=== PATIENT | male | born 1945 | race Caucasian/White ===

== ENCOUNTER 2019-07-30 11:55 | Emergency (ER) | payer MEDICARE ==
[~2019-07-30] VITALS: Ht 165.1 cm; Wt 72.6 kg
--- NOTE | 2019-07-30 12:20 | PHYS DOC ---
Past Medical History Past Medical History: Diverticulitis, Hypertension, Kidney Stone Additional Past Surgical Histo: surgery for kidney stones, back surgery Smoking: Cigarettes (The patient is a nonsmoker.) Adult General Chief Complaint Chief Complaint: ABDOMINAL PAIN HPI HPI Patient is a very pleasant 74-year-old male who presents to the emergency department for evaluation. He states about 2 hours prior to arrival, he had the sudden onset of left lower quadrant abdominal pain, with radiation towards his left groin/testicular area. He has had some nausea but no vomiting. He denies any fevers or chills. He denies any dizziness or lightheadedness, numbness or weakness. He has had both kidney stones and diverticulitis in the past, although this pain began suddenly and feels more like his diverticulitis. He does not have any flank pain per say. There are no alleviating or exacerbating factors to her symptoms although palpation of his abdomen seems to worsen his symptoms. Review of Systems Review of Systems Constitutional: Denies fever or chills [] Eyes: Denies change in visual acuity, redness, or eye pain [] HENT: Denies nasal congestion or sore throat [] Respiratory: Denies cough or shortness of breath [] Cardiovascular: The patient denies any shortness of breath, chest pain, palpita tions, or orthopnea [] GI: Denies vomiting, bloody stools or diarrhea [] : Denies dysuria or hematuria [] Musculoskeletal: Denies back pain or joint pain [] Integument: Denies rash or skin lesions [] Neurologic: Denies headache, focal weakness or sensory changes [] Endocrine: Denies polyuria or polydipsia [] All other systems were reviewed and found to be within normal limits, except as documented in this note. Current Medications Current Medications Current Medications Medications (Trade) Dose Ordered Sig/Beverley Start Time Stop Time Status Last Admin Dose Admin Ceftriaxone Sodium (Rocephin) 1 gm 1X ONCE 07/30/19 13:30 07/30/19 13:31 Hydromorphone HCl (Dilaudid) 1 mg 1X ONCE 07/30/19 13:15 07/30/19 13:16 DC 07/30/19 13:17 1 MG Ketorolac Tromethamine (Toradol 30mg Vial) 30 mg 1X ONCE 07/30/19 12:45 07/30/19 12:46 DC 07/30/19 12:34 30 MG Ondansetron HCl (Zofran) 4 mg 1X ONCE 07/30/19 12:45 07/30/19 12:46 DC 07/30/19 12:34 4 MG Sodium Chloride 1,000 ml @ 1,000 mls/hr Q1H 07/30/19 12:30 07/30/19 13:29 07/30/19 12:33 1,000 MLS/HR Tamsulosin HCl (Flomax) 0.4 mg 1X ONCE 07/30/19 13:15 07/30/19 13:16 DC 07/30/19 13:15 0.4 MG Allergies Allergies Allergies Coded Allergies Type Severity Reaction Last Updated Verified No Known Drug Allergies 07/30/19 No Physical Exam Physical Exam PHYSICAL EXAM: CONSTITUTIONAL: Well developed, well nourished HEAD: normocephalic, atraumatic EENT: PERRL, EOMI. Conjunctivae normal color, sclerae non-icteric; moist mucous membranes. NECK: Supple, non-tender; no meningismus. LUNGS: Lungs CTA, breathing even and unlabored. Normal air movement. HEART: Regular rate and rhythm, no murmur CHEST: No deformity; non-tender ABDOMEN: The abdomen is soft, there is diffuse tenderness to palpation in the left mid and lower abdomen, without rebound or guarding, the remainder of the abdomen is relatively soft and non-tender, no masses or bruits. EXTREM: Normal ROM; no deformity, no calf tenderness. Normal pulses palpable in all extremities. There is no pedal edema. SKIN: No rash; no diaphoresis NEURO: Alert; normal speech and cognition; CN's grossly intact; strength grossly intact without focal deficit. BACK: There is very mild left-sided CVA TTP. Current Patient Data Lab Values Laboratory Tests Test 07/30/19 12:06 07/30/19 12:15 Urine Collection Type Unknown Urine Color Yellow Urine Clarity Clear Urine pH 6.0 Urine Specific [place] 1.025 Urine Protein 30 mg/dL (NEG-TRACE) Urine Glucose (UA) Negative mg/dL (NEG) Urine Ketones (Stick) Negative mg/dL (NEG) Urine Blood Large (NEG) Urine Nitrite Negative (NEG) Urine Bilirubin Negative (NEG) Urine Urobilinogen Dipstick 0.2 mg/dL (0.2 mg/dL) Urine Leukocyte Esterase Moderate (NEG) Urine RBC 11-20 /HPF (0-2) Urine WBC 11-20 /HPF (0-4) Urine Squamous Epithelial Cells None /LPF Urine Bacteria 0 /HPF (0-FEW) Urine Mucus Marked /LPF White Blood Count 5.5 x10^3/uL (4.0-11.0) Red Blood Count 4.17 x10^6/uL (4.30-5.70) L Hemoglobin 13.1 g/dL (13.0-17.5) Hematocrit 38.8 % (39.0-53.0) L Mean Corpuscular Volume 93 fL (79-100) Mean Corpuscular Hemoglobin 31 pg (25-35) Mean Corpuscular Hemoglobin Concent 34 g/dL (31-37) Red Cell Distribution Width 13.6 % (11.5-14.5) Platelet Count 227 x10^3/uL (140-400) Neutrophils (%) (Auto) 61 % (31-73) Lymphocytes (%) (Auto) 23 % (24-48) L Monocytes (%) (Auto) 9 % (0-9) Eosinophils (%) (Auto) 6 % (0-3) H Basophils (%) (Auto) 1 % (0-3) Neutrophils # (Auto) 3.4 x10^3/uL (1.8-7.7) Lymphocytes # (Auto) 1.3 x10^3/uL (1.0-4.8) Monocytes # (Auto) 0.5 x10^3/uL (0.0-1.1) Eosinophils # (Auto) 0.3 x10^3/uL (0.0-0.7) Basophils # (Auto) 0.1 x10^3/uL (0.0-0.2) Sodium Level 143 mmol/L (136-145) Potassium Level 3.4 mmol/L (3.5-5.1) L Chloride Level 108 mmol/L (98-107) H Carbon Dioxide Level 25 mmol/L (21-32) Anion Gap 10 (6-14) Blood Urea Nitrogen 18 mg/dL (8-26) Creatinine 1.2 mg/dL (0.7-1.3) Estimated GFR (Cockcroft-Gault) 59.5 BUN/Creatinine Ratio 15 (6-20) Glucose Level 120 mg/dL (70-99) H Calcium Level 9.3 mg/dL (8.5-10.1) Total Bilirubin 0.4 mg/dL (0.2-1.0) Aspartate Amino Transferase (AST) 17 U/L (15-37) Alanine Aminotransferase (ALT) 21 U/L (16-63) Alkaline Phosphatase 67 U/L (46-116) Total Protein 6.8 g/dL (6.4-8.2) Albumin 3.7 g/dL (3.4-5.0) Albumin/Globulin Ratio 1.2 (1.0-1.7) Lipase 137 U/L (73-393) Laboratory Tests 07/30/19 12:15 Laboratory Tests 07/30/19 12:15 EKG EKG [] Radiology/Procedures Radiology/Procedures PROCEDURE: CT ABDOMEN PELVIS WO CONTRAST CT abdomen and pelvis without contrast PQRS statement: CT scans at this facility use dose reduction including either automated exposure control, iterative reconstructions, and /or weight based radiation dosing via mA and kV modification when appropriate to reduce radiation dose to as low as reasonably achievable. HISTORY: Left lower quadrant pain, left flank pain, diverticulitis, renal renal stones. Abdomen findings: Lung bases unremarkable. Lumbar scoliosis, disc disease and arthritic changes spinal canal and neural foraminal stenoses. Liver, gallbladder, pancreas, adrenal glands, spleen are unremarkable. Bilateral nephrolithiasis largest calculus of the right kidney is 17 mm with a mild staghorn morphology at the lower pole. Mild left greater than right perinephric edema. There is mild left renal hydronephrosis renal pelvis diameter 2 cm associated with a distal left ureteral 5 mm obstructing calculus 1 cm above the bladder. 3 cm fatty umbilical abdominal wall hernia. Sigmoid diverticulosis. Appendix is negative. No obstruction or inflammation the GI tract. Pelvis findings: No bladder calculi. Fiducials at the prostate typical for radiation treatment for malignancy. Rectum and bones are unremarkable. IMPRESSION: 1. Mild left renal hydronephrosis and renal edema due to a 5 mm distal ureteral obstructing calculus. 2. Bilateral nephrolithiasis. 3. The appendix is negative.[] Course & Med Decision Making Course & Med Decision Making Pertinent Labs and Imaging studies reviewed. (See chart for details) []1:25 PM: The patient's condition remained stable, he is feeling significantly better at this time, and his pain has resolved. I discussed test results in detail with the patient. He might have a small urine infection but he does not feel that he needs to be hospitalized like to go home. He has a urologist whom he has seen in [place] and I encouraged him to call tomorrow morning to schedule close follow-up appointment. He already takes Flomax daily and I encouraged him to continue to do so. Return precautions were discussed in detail. Dragon Disclaimer Dragon Disclaimer This electronic medical record was generated, in whole or in part, using a voice recognition dictation system. Departure Departure Impression: Primary Impression: Kidney stone Disposition: HOME, SELF-CARE Condition: STABLE Patient Instructions: Diet for Kidney Stones, Kidney Stones Additional Instructions: Ibuprofen 400-600 mg every 6 hours as needed for pain. Use the prescribed pain medication as needed for pain not controlled by ibuprofen.The prescribed medication may cause drowsiness. Use caution while taking. Strain your urine. If you find a kidney stone, bring it to your urology follow- up appointment, as this may help the urologist to determine what is causing the stone what you might be able to do to prevent this from happening in the future. Call your urologist tomorrow, in the morning to schedule a follow-up appointment. Return to medical care for any new or worsening symptoms, development of fever, vomiting, increasing pain, or any other new, or concerning symptoms Scripts Sulfamethoxazole/Trimethoprim (BACTRIM DS TABLET) 1 Each Tablet 1 TAB PO BID, #14 TAB Prov: KRISTI COSTELLO MD 07/30/19 Oxycodone/Apap 5-325 (PERCOCET 5-325 MG TABLET ) 1 Each Tablet 1 TAB PO Q6HRS PRN for PAIN MDD 3 Tablet(s), #15 TAB 0 Refills Prov: KRISTI COSTELLO MD 07/30/19 KRISTI COSTELLO MD Jul 30, 2019 12:20
[2019-07-30 12:24] LABS: BILIRUBIN,URINE NEGATIVE (NEG); CLARITY,URINE CLEAR; COLOR,URINE YELLOW; NITRITE,URINE NEGATIVE (NEG); PROTEIN,URINE 30 mg/dL (NEG-TRACE); UROBILINOGEN,URINE 0.2 mg/dL (0.2 mg/dL)
[2019-07-30] MEDS ORDERED: IV NORMAL SALINE 1000ML BAG 1,000 ML IV SCH (12:30)
[2019-07-30] MEDS ORDERED: KETOROLAC 30 MG/ML VIAL. IV ONE (12:45)
[2019-07-30] MEDS ORDERED: ONDANSETRON PF 4 MG/2 ML VIAL. IV ONE (12:45)
[2019-07-30 12:50] LABS: BASO # 0.1 x10^3/uL (0.0-0.2); BASO % 1 % (0-3); EOS # 0.3 x10^3/uL (0.0-0.7); EOS % 6 % (0-3); HEMATOCRIT 38.8 % (39.0-53.0); HEMOGLOBIN 13.1 g/dL (13.0-17.5); LYMPH # 1.3 x10^3/uL (1.0-4.8); LYMPH % 23 % (24-48); MEAN CORPUSCULAR HEMOGLOBIN 31 pg (25-35); MEAN CORPUSCULAR HGB CONC 34 g/dL (31-37); MEAN CORPUSCULAR VOLUME 93 fL (79-100); MONO # 0.5 x10^3/uL (0.0-1.1); MONO % 9 % (0-9); NEUT # 3.4 x10^3/uL (1.8-7.7); NEUT % 61 % (31-73); PLATELET COUNT 227 x10^3/uL (140-400); RED BLOOD COUNT 4.17 x10^6/uL (4.30-5.70); RED CELL DISTRIBUTION WIDTH 13.6 % (11.5-14.5); WHITE BLOOD COUNT 5.5 x10^3/uL (4.0-11.0)
[2019-07-30 12:54] LABS: CALCIUM 9.3 mg/dL (8.5-10.1); CREATININE 1.2 mg/dL (0.7-1.3); GFR 59.5; POTASSIUM 3.4 mmol/L (3.5-5.1)
[2019-07-30 12:59] LABS: ALBUMIN 3.7 g/dL (3.4-5.0); ALBUMIN/GLOBULIN RATIO 1.2 (1.0-1.7); TOTAL BILIRUBIN 0.4 mg/dL (0.2-1.0); TOTAL PROTEIN 6.8 g/dL (6.4-8.2)
[2019-07-30 13:03] LABS: BACTERIA,URINE 0 /HPF (0-FEW)
--- NOTE | 2019-07-30 13:13 | RAD ---
CT abdomen and pelvis without contrast PQRS statement: CT scans at this facility use dose reduction including either automated exposure control, iterative reconstructions, and /or weight based radiation dosing via mA and kV modification when appropriate to reduce radiation dose to as low as reasonably achievable. HISTORY: Left lower quadrant pain, left flank pain, diverticulitis, renal renal stones. Abdomen findings: Lung bases unremarkable. Lumbar scoliosis, disc disease and arthritic changes spinal canal and neural foraminal stenoses. Liver, gallbladder, pancreas, adrenal glands, spleen are unremarkable. Bilateral nephrolithiasis largest calculus of the right kidney is 17 mm with a mild staghorn morphology at the lower pole. Mild left greater than right perinephric edema. There is mild left renal hydronephrosis renal pelvis diameter 2 cm associated with a distal left ureteral 5 mm obstructing calculus 1 cm above the bladder. 3 cm fatty umbilical abdominal wall hernia. Sigmoid diverticulosis. Appendix is negative. No obstruction or inflammation the GI tract. Pelvis findings: No bladder calculi. Fiducials at the prostate typical for radiation treatment for malignancy. Rectum and bones are unremarkable. IMPRESSION: 1. Mild left renal hydronephrosis and renal edema due to a 5 mm distal ureteral obstructing calculus. 2. Bilateral nephrolithiasis. 3. The appendix is negative. Electronically signed by: Yeyo Puente MD (07/30/2019 1:10 PM) [facility]
[2019-07-30] MEDS ORDERED: TAMSULOSIN 0.4 MG CAP.ER.24H. PO ONE (13:15)
[2019-07-30] MEDS ORDERED: HYDROmorphone 2 MG/ML VIAL IV ONE (13:15)
[2019-07-30] MEDS ORDERED: OXYC1TAB15 PO (13:28)
[2019-07-30] MEDS ORDERED: SULF1TAB24 PO (13:28)
[2019-07-30] MEDS ORDERED: cefTRIAXone IV Push 1 GM VIAL. IVP ONE (13:30)
[2019-07-30 13:45] VITALS: BP 129/81
== END 2019-07-30 14:03 | disposition home or self-care (01) ==
LOC: ER 11:55
DX: N13.2 Hydronephrosis with renal and ureteral calculous obstruction (principal); I10 Essential (primary) hypertension; Z98.890 Other specified postprocedural states
CPT/HCPCS: 36415; 74176; 80053; 81001; 83690; 85025; 87086; 96374; 96375; 99285; J0696; J1170; J1885; J2405; J7030

== ENCOUNTER → 2019-08-07 | Outpatient (CLI) | payer MEDICARE ==
[2019-07-30 13:45] VITALS: BP 129/81
[~2019-08-07] MED LIST: OXYC1TAB15 PO; SULF1TAB24 PO
--- NOTE | 2019-08-07 17:03 | RAD ---
Examination: KUB History: Kidney stones Comparison/Correlation: None Findings: Frontal views of the abdomen were obtained. There are 2 dominant calculi involving the right renal interpolar level measuring up to 0.9 cm diameter. A smaller calculus may also be present more medially. Left renal calculus measuring up to 0.9 cm diameter is also present. Calcifications in the pelvis are of indeterminate significance and are probably vascular in origin. Bowel gas pattern is unremarkable. Radiopaque density overlying the symphysis pubis noted. Impression: Bilateral renal calculi. Electronically signed by: Wilson Boston MD (08/07/2019 5:00 PM) [facility]
== END | disposition home or self-care (01) ==
LOC: RAD 11:00
PROVIDERS: ATTEND Urology
DX: N20.0 Calculus of kidney (principal); N28.89 Other specified disorders of kidney and ureter
CPT/HCPCS: 74018